=== PATIENT | male | born 1975 ===

== ENCOUNTER 2023-05-28 16:07 | Outpatient (REF) | payer OTHER, SELFPAY ==
[2023-05-28 19:12] LABS: Anion Gap 12.4 mmol/L (3-11); BUN 21 mg/dL (7-18); CO2 26.6 mmol/L (21.0-32.0); CREATININE 1.3 mg/dL (0.70-1.30); Calcium 9.2 mg/dL (8.5-10.1); Chloride 102 mmol/L (98-107); Estimated GFR 68.19 (mL/min/1.73m2); Glucose 102 mg/dL (74-106); Potassium 3.5 mmol/L (3.5-5.1); Sodium 141 mmol/L (136-145)
== END 2023-05-28 16:08 | disposition home or self-care (01) ==
LOC: LBN 16:07
PROVIDERS: Visit Provider Physician Assistant Medical
DX: E87.6 Hypokalemia (principal)
CPT/HCPCS: 80048

== ENCOUNTER → 2023-05-28 18:15 | Outpatient (CLI) | payer OTHER, SELFPAY ==
--- NOTE | 2023-05-28 | DI.RAD_ITS ---
Exam(s) XR KNEE LT 3V AP,LAT,NADIYA EXAM: XR KNEE LT 3V AP,LAT,NADIYA CLINICAL HISTORY: M25.562 Pain in left knee. TECHNIQUE: 2D digital imaging was performed. Three views. COMPARISON: No exams were available for comparison FINDINGS: BONES: No acute fracture is present. No bony destructive lesion is seen. Chronic appearing calcifica tion adjacent to the tibial tubercle. JOINTS: The knee is normally aligned. No joint effusion is seen. Joint spaces are maintained. No s ignificant degenerative changes. SOFT TISSUE: Normal. IMPRESSION: No acute abnormality. DATA REPOSITORY: RADIATION DOSE DELIVERED:
== END ==
PROVIDERS: Visit Provider Physician Assistant Medical
DX: M25.562 Pain in left knee (principal)
CPT/HCPCS: 73562